=== PATIENT | female | born 1980 | race Hispanic/Latino ===

== ENCOUNTER 2018-09-09 11:31 | Emergency (ER) | payer OTHER ==
[2018-09-09 12:39] LABS: APPEARANCE,URINE Clear (CLEAR); BILIRUBIN,URINE Negative (NEGATIVE); COLOR,URINE Yellow (YELLOW); GLUCOSE, URINE (UA) Negative (NEGATIVE); KETONES,URINE Negative (NEGATIVE); LEUKOCYTE ESTERASE ,URINE Negative (NEGATIVE); NITRATE,URINE Negative (NEGATIVE); OCCULT BLOOD,URINE Moderate (NEGATIVE); PH,URINE 5.5 (5.0-8.0); PROTEIN,URINE Negative (NEGATIVE); UROBILINOGEN,URINE 0.2 mg/dL (0.2-1.0)
[2018-09-09 12:40] LABS: HCG,QUAL RESULT POSITIVE (NEGATIVE)
[2018-09-09 12:55] LABS: BACTERIA,URINE Rare /HPF (None Seen); WBC,URINE None Seen /HPF (0-1)
== END 2018-09-09 13:03 | disposition home or self-care (01) ==
LOC: EDH 11:31
DX: O26.891 Other specified pregnancy related conditions, first trimester (principal); R35.0 Frequency of micturition; Z79.899 Other long term (current) drug therapy; Z98.890 Other specified postprocedural states; Z3A.01 Less than 8 weeks gestation of pregnancy
CPT/HCPCS: 81001; 81025; 87486; 87797

== ENCOUNTER 2018-09-30 10:44 | Emergency (ER) | payer MEDICAID ==
[2018-09-30 11:35] LABS: BASOPHILS % (AUTO) 0.5 % (0.0-5.0); EOSINOPHILS % (AUTO) 1.2 % (0.0-8.0); HEMATOCRIT 40.8 % (36-48); LYMPHOCYTES % (AUTO) 23.2 % (21.0-51.0); MEAN CORPUSCULAR HEMOGLOBIN 30.4 pg (27.0-33.0); MEAN CORPUSCULAR HGB CONC 33.6 g/dL (32.0-36.0); MEAN CORPUSCULAR VOLUME 90.5 fL (79-99); MONOCYTES % (AUTO) 5.9 % (3.0-13.0); NEUTROPHILS % (AUTO) 69.2 % (40.0-77.0); PLATELET COUNT (AUTO) 291 K/uL (130-400); RED BLOOD CELL COUNT(AUTO) 4.51 MIL/uL (4.00-5.50); RED CELL DISTRIBUTION WIDTH 13.9 % (11.0-15.5); WHITE BLOOD COUNT (AUTO) 8.9 K/uL (4.8-10.8)
== END 2018-09-30 12:51 | disposition home or self-care (01) ==
LOC: EDH 10:44
DX: O20.0 Threatened abortion (principal); R10.9 Unspecified abdominal pain; Z3A.09 9 weeks gestation of pregnancy
CPT/HCPCS: 36415; 76801; 84702; 85025; 86900; 86901

== ENCOUNTER 2019-04-04 08:09 | Emergency (ER) | payer MEDICAID ==
[2019-04-04] MEDS ORDERED: ONDANSETRON ODT 4 MG TAB ONE (08:42)
[2019-04-04] MEDS ORDERED: MORPHINE SULFATE 4 MG/1ML SYG ONE (08:42)
== END 2019-04-04 09:48 | disposition home or self-care (01) ==
LOC: EDH 08:09
DX: K04.7 Periapical abscess without sinus (principal)
CPT/HCPCS: 96372; 99283; J2270

== ENCOUNTER 2019-04-06 08:17 | Emergency (ER) | payer MEDICAID ==
[2019-04-06] MEDS ORDERED: SODIUM CHLORIDE 0.9% 1000ML 1,000 ML IV ONE (08:46)
[2019-04-06] MEDS ORDERED: HYDROCODONE/ACETAMINOPHEN 10/325 MG TAB ONE (08:56)
[2019-04-06] MEDS ORDERED: KETOROLAC TROMETHAMINE 30MG/ML ONE (08:57)
[2019-04-06] MEDS ORDERED: AMPICILLIN SODIUM/SULBACTAM NA 1.5GM VIAL ONE (09:22)
== END 2019-04-06 10:24 | disposition home or self-care (01) ==
LOC: EDH 08:17
DX: K04.7 Periapical abscess without sinus (principal); K02.9 Dental caries, unspecified; G43.909 Migraine, unspecified, not intractable, without status migrainosus
CPT/HCPCS: 96365; 96375; 99284; J0295; J1885; J7030